=== PATIENT | female | born 1990 | race Caucasian/White ===

== ENCOUNTER 2018-10-29 17:13 | Emergency (ER) | payer OTHER ==
--- NOTE | 2018-10-29 17:32 | EDPHY ---
HPI/HX/ROS/PE/MDM Narrative: CHIEF COMPLAINT: RLQ pain HPI: The patient is a 28 y/o female complaining of dull aching RLQ abdominal pain for the last week. She was recently in [place] and was evaluated while there for possible appendicitis. A CT scan on 10/26/18, 3 days ago, did not show signs of appendicitis. They checked a urine as well, but no other lab work. She returned home yesterday and has continued to have waxing and waning pain at that site and associated reduced appetite. She also mentions mild right-sided back pressure, mild RUQ discomfort, and polyuria. She denies dysuria or hematuria. She was told she had a "low-grade fever" at [facility] today and was then referred to the ED. She is typically healthy. She has an IUD and does not have a regular menstrual period. She had some mild vaginal spotting on , 4 days ago. REVIEW OF SYSTEMS: A comprehensive 10 system review of systems is otherwise negative aside from elements mentioned in the history of present illness. 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 PHYSICAL EXAM: General:Patient is alert, in no acute distress. ENT:Eyes are normal to inspection. ENT inspection normal. Neck: Normal inspection. Full range of motion. Respiratory:No respiratory distress. Breath sounds normal bilaterally. Cardiovascular: Regular rate and rhythm. Strong peripheral pulses. Normal cap refill. Abdomen:The abdomen has mild RLQ and RUQ tenderness to palpation. There are no peritoneal signs. Back: Normal to inspection. No tenderness to palpation. Skin: Normal color. No rash. Warm and dry. Extremities: Normal appearance. Full range of motion. Neuro: Oriented x3. Normal motor function. Normal sensory function. ED Course: This is a healthy 28 y/o female who presents with a 1-week history of persistent RLQ abdominal pain with associated back pain and polyuria. Recent out -of-state CT was negative. She has RLQ and RUQ tenderness on exam. She is afebrile here. Feel appendicitis is less likely due to negative CT 5 days after symptoms began and no signs of systemic illness during assessment today. Ovarian or urinary etiology more likely. Plan for UA, labs, and abdominal US. Patient declines pain medication at this time. US shows mildly dilated appendix with some free fluid but no hyperemia. I consulted Dr. Nunez from [facility] at 1950 - he will come evaluate the patient. Dr. Nunez recommended abdominal CT. Patient declined this and would like to be discharged home. Dr. Nunez is okay with this plan and would like patient to follow up with his office as an outpatient in the next few days. Patient agrees to this. Return precautions discussed. - Data Points Imaging Results: Imaging Impressions Abdomen Ultrasound 10/29/18 18:20 Impression: Appendix upper normal in caliber, with trace periappendiceal fluid , without hyperemia or definite adjacent inflammation, indeterminate for acute appendicitis. Findings discussed with Benja Crawford MD on October 29, 2018 at 1944. Abdomen Ultrasound 10/29/18 18:20 Impression: Normal right upper quadrant ultrasound. Findings discussed with Benja Crawford MD 10/29/2018 at 1944. Pelvic/Renal Ultrasound 10/29/18 18:20 Impression: 1. Normal pelvic ultrasound. 2. IUD in good position. Findings discussed with Benja Crawford MD 10/29/2018 at 1944. Imaging: Discussed imaging studies w/ bingo caller Radiologist Laboratory Results: Laboratory Results 10/29/18 17:50 10/29/18 17:50 10/29/18 10/29/18 10/29/18 17:52 17:50 17:50 WBC RBC Hgb Hct MCV MCH MCHC RDW Plt Count MPV Neut % (Auto) Lymph % (Auto) Renville % (Auto) Eos % (Auto) Baso % (Auto) Nucleat RBC Rel Count Absolute Neuts (auto) Absolute Lymphs (auto) Absolute Monos (auto) Absolute Eos (auto) Absolute Basos (auto) Absolute Nucleated RBC Immature Gran % Immature Gran # Sodium 139 mEq/L mEq/L (135-145) Potassium 3.8 mEq/L mEq/L (3.5-5.2) Chloride 103 mEq/L mEq/L (97-110) Carbon Dioxide 25 mEq/l mEq/l (22-31) Anion Gap 11 mEq/L mEq/L (6-14) BUN 11 mg/dL mg/dL (7-23) Creatinine 0.7 mg/dL mg/dL (0.6-1.0) Estimated GFR > 60 Glucose 77 mg/dL mg/dL (70-100) Calcium 9.7 mg/dL mg/dL (8.5-10.4) Total Bilirubin 0.7 mg/dL mg/dL (0.1-1.4) Conjugated Bilirubin 0.3 mg/dL mg/dL (0.0-0.5) Unconjugated Bilirubin 0.4 mg/dL mg/dL (0.0-1.1) AST 26 IU/L IU/L (14-46) ALT 22 IU/L IU/L (9-52) Alkaline Phosphatase 77 IU/L IU/L (38-126) Total Protein 8.0 g/dL g/dL (6.3-8.2) Albumin 5.0 g/dL g/dL (3.5-5.0) Lipase 96 IU/L IU/L (23-300) Beta HCG, Qual NEGATIVE Urine Color YELLOW Urine Appearance CLEAR Urine pH 7.0 (5.0-7.5) Ur Specific Adams 1.012 (1.002-1.030) Urine Protein NEGATIVE (NEGATIVE) Urine Ketones 1+ H (NEGATIVE) Urine Blood NEGATIVE (NEGATIVE) Urine Nitrate NEGATIVE (NEGATIVE) Urine Bilirubin NEGATIVE (NEGATIVE) Urine Urobilinogen NEGATIVE EU EU (0.2-1.0) Ur Leukocyte Esterase NEGATIVE (NEGATIVE) Urine Glucose NEGATIVE (NEGATIVE) 10/29/18 17:50 WBC 10.21 10^3/uL H 10^3/uL (3.80-9.50) RBC 5.31 10^6/uL 10^6/uL (4.18-5.33) Hgb 15.4 g/dL g/dL (12.6-16.3) Hct 45.2 % % (38.0-47.0) MCV 85.1 fL fL (81.5-99.8) MCH 29.0 pg pg (27.9-34.1) MCHC 34.1 g/dL g/dL (32.4-36.7) RDW 12.4 % % (11.5-15.2) Plt Count 275 10^3/uL 10^3/uL (150-400) MPV 8.8 fL fL (8.7-11.7) Neut % (Auto) 55.0 % % (39.3-74.2) Lymph % (Auto) 36.8 % % (15.0-45.0) Renville % (Auto) 6.8 % % (4.5-13.0) Eos % (Auto) 0.7 % % (0.6-7.6) Baso % (Auto) 0.4 % % (0.3-1.7) Nucleat RBC Rel Count 0.0 % % (0.0-0.2) Absolute Neuts (auto) 5.62 10^3/uL 10^3/uL (1.70-6.50) Absolute Lymphs (auto) 3.76 10^3/uL H 10^3/uL (1.00-3.00) Absolute Monos (auto) 0.69 10^3/uL 10^3/uL (0.30-0.80) Absolute Eos (auto) 0.07 10^3/uL 10^3/uL (0.03-0.40) Absolute Basos (auto) 0.04 10^3/uL 10^3/uL (0.02-0.10) Absolute Nucleated RBC 0.00 10^3/uL 10^3/uL (0-0.01) Immature Gran % 0.3 % % (0.0-1.1) Immature Gran # 0.03 10^3/uL 10^3/uL (0.00-0.10) Sodium Potassium Chloride Carbon Dioxide Anion Gap BUN Creatinine Estimated GFR Glucose Calcium Total Bilirubin Conjugated Bilirubin Unconjugated Bilirubin AST ALT Alkaline Phosphatase Total Protein Albumin Lipase Beta HCG, Qual Urine Color Urine Appearance Urine pH Ur Specific Adams Urine Protein Urine Ketones Urine Blood Urine Nitrate Urine Bilirubin Urine Urobilinogen Ur Leukocyte Esterase Urine Glucose Medications Given: Discontinued Medications Ketorolac Tromethamine (Toradol) 30 mg IVP EDNOW ONE Stop: 10/29/18 20:50 Last Admin: 10/29/18 20:59 Dose: 30 mg General Time Seen by Provider: 10/29/18 17:22 Initial Vital Signs: Initial Vital Signs Temperature (C) 36.6 C 10/29/18 17:15 Heart Rate 75 10/29/18 17:15 Respiratory Rate 17 10/29/18 17:15 Blood Pressure 137/100 H 10/29/18 17:15 O2 Sat (%) 97 10/29/18 17:15 O2 Delivery Mode Room Air Allergies/Adverse Reactions: No Known Allergies Allergy (Unverified 10/29/18 17:15) Home Medications: Medication Instructions Recorded MIRENA 10/29/18 Departure - Departure Disposition: Home, Routine, Self-Care Clinical Impression: Abdominal pain Qualifiers: Abdominal location: right lower quadrant Qualified Code(s): R10.31 - Right lower quadrant pain Condition: Good Instructions: Acute Abdominal Pain (ED) Additional Instructions: 1. Follow up with Dr. Nunez this week as directed. 2. Return to the ED for any worsening of condition. Referrals: Jesús Nunez MD [Medical Doctor] - As per Instructions Report Scribed for: Benja Crawford Report Scribed by: Glenis Chavez Date of Report: 10/29/18 Time of Report: 17:25 Physician Review and Approval Statement: Portions of this note were transcribed by an ED scribe. I personally performed the history, physical exam, and medical decision making; and confirm the accuracy of the information in the transcribed note.
[2018-10-29 18:10] LABS: PLATELET COUNT 275 10^3/uL (150-400)
[2018-10-29] MEDS ORDERED: KETOROLAC 30 MG/1 ML SDV IVP ONE (20:49)
[2018-10-29 21:38] VITALS: BP 117/72
--- NOTE | 2018-10-30 10:20 | GCON ---
[f rep st] CONSULTATION DATE OF CONSULTATION: 10/29/2018 REASON FOR EVALUATION: Right lower quadrant pain. Rule out appendicitis. 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 She reports the symptoms started approx imately last Monday while at home visiting her family in [place]. She had persistent discomfort over e ensuing week for which she presented to a physician three days ago. CT imaging was performed showi ng normal appendix and normal test. No other workup was entertained. Patient returned prosper Last 2 Left to [place] and, because of persistent abdominal pressure and anorexia, sought workup at [facility]. She was sent to the emergency room for further assessment. Lab workup here disclosed a white count of 10.5. A right lower quadrant ultrasonography was performed showing an indeterminate ultrasound f or appendicitis. Surgery has been requested for further workup and recommendations. No prior histor y of antecedent complaints. No history of diarrhea. No other sick contacts. No fevers or chills. No voiding complaints. PAST MEDICAL HISTORY: Denies. PAST SURGICAL HISTORY: None. MEDICATIONS: None. She has an IUD. ALLERGIES: No known drug allergies. SOCIAL HISTORY: No alcohol or tobacco. FAMILY HISTORY: Noncontributory. REVIEW OF SYSTEMS: Notable for above GI complaints only. PHYSICAL EXAMINATION: VITAL SIGNS: Temperature 36.7, blood pressure 116/80, pulse 73, respirations 16. GENERAL: Patient is alert, appropriate, comfortable to my exam. HEENT: Anicteric. No cervica l lymphadenopathy. HEART: Regular. LUNGS: Clear. ABDOMEN: Soft. Mild diffuse right lower quadr ant tenderness without rebound or guarding. Notable Rovsing sign as well as obturator sign. EXTREMI TIES: Unremarkable. SKIN: Without rashes. White count 10.2, lymphocyte predominance. No neutrophils. Electrolytes within reference range. Li alverto enzymes were within reference range. test negative. Urinalysis unremarkable. Outside CT images were directly reviewed on her provided disk. Normal-appearing appendix is well displayed, coursing deep into her pelvis and tracking superiorly. Pelvic ultrasound images were reviewed with the on-call radiologist from [facility] this evening. The majority the appendix is wel l visualized measuring 6.5 mm at best with no significant inflammatory changes or periappendiceal daniel e fluid or hyperemia. IMPRESSION: Right lower quadrant pain. Query mesenteric adenitis versus less likely appendicitis. We discussed the options of repeat pelvic imaging versus serial abdominal exams versus diagnostic lap aroscopy. After extensive discussion, the patient would like to continue with serial abdominal exams with outpatient followup warning signs for appendicitis were reviewed should she develop worsening p ain were discussed. /[id number]/MODL
== END 2018-10-29 21:37 | disposition home or self-care (01) ==
DX: R10.31 Right lower quadrant pain (principal)
CPT/HCPCS: 96374; J1885

== ENCOUNTER 2018-11-02 15:27 | Observation (INO) | payer OTHER ==
[2018-11-02] MEDS ORDERED: PROPOFOL/EMULSION 500 MG/50 ML BOTTLE IV ONE (15:39)
[2018-11-02] MEDS ORDERED: BUPIVACAINE/EPI 0.5% 30 ML SDV ONE (15:40)
[2018-11-02] MEDS ORDERED: fentaNYL 250 MCG/5 ML INJ ONE (15:40)
[2018-11-02] MEDS ORDERED: KETOROLAC 30 MG/1 ML SDV IVP ONE (15:50)
[2018-11-02] MEDS ORDERED: cefOXitin SODIUM 2 GM in NS 100 ML IV ONE (16:00)
[2018-11-02] MEDS ORDERED: LR 1,000 ML IV ONE (16:07)
[2018-11-02] MEDS ORDERED: MIDAZOLAM 2 MG/2 ML VIAL IVP ONE (16:09)
--- NOTE | 2018-11-02 16:11 | PDANEPAE ---
ANE History of Present Illness 28 year old female for [employer]. Otherwise healthy. ANE Past Medical History - Cardiovascular History Hx Hypertension: No Hx Arrhythmias: No Hx Chest Pain: No Hx Coronary Artery / Peripheral Vascular Disease: No Hx CHF / Valvular Disease: No Hx Palpitations: No - Pulmonary History Hx COPD: No Hx Asthma/Reactive Airway Disease: No Hx Recent Upper Respiratory Infection: No Hx Oxygen in Use at Home: No Hx Sleep Apnea: No - Endocrine History Hx Diabetes: No ANE Review of Systems Review of systems is: negative Review of Systems: ANE Patient History - Allergies Allergies/Adverse Reactions: No Known Allergies Allergy (Unverified 10/29/18 17:15) - Home Medications Home Medications: MIRENA 10/29/18 [Last Taken Unknown] - NPO status NPO Since - Liquids (Date): 11/02/18 NPO Since - Liquids (Time): 15:40 NPO Since - Solids (Date): 11/02/18 NPO Since - Solids (Time): 12:00 - Smoking Hx Smoking Status: Never smoked ANE Labs/Vital Signs - Vital Signs Blood Pressure: 113/84 Heart Rate: 77 Respiratory Rate: 17 O2 Sat (%): 98 ANE Physical Exam - Airway Neck exam: FROM Mallampati Score: Class 2 Mouth exam: normal dental/mouth exam - Pulmonary Pulmonary: no respiratory distress - Cardiovascular Cardiovascular: regular rate and rhythym - ASA Status ASA Status: I, E ANE Anesthesia Plan Anesthesia Plan: general endotracheal anesthesia
[2018-11-02] MEDS ORDERED: LR 500 ML IV PRN (16:52)
[2018-11-02] MEDS ORDERED: PROMETHAZINE HCL 25 MG/ML INJ IVP PRN (16:52)
[2018-11-02] MEDS ORDERED: oxyCODONE IR 5 MG TAB PO PRN (16:52)
[2018-11-02] MEDS ORDERED: NALOXONE HCL 0.4 MG/ML INJ IVP PRN (16:52)
[2018-11-02] MEDS ORDERED: ALBUTEROL 3 ML DEYVIAL IH PRN (16:52)
[2018-11-02] MEDS ORDERED: ONDANSETRON 4 MG/2 ML VIAL IVP PRN (16:52)
[2018-11-02] MEDS ORDERED: DEXAMETHASONE 4 MG/ML VIAL IVP PRN (16:52)
[2018-11-02] MEDS ORDERED: LABETALOL HCL 5 MG/ML 20 ML MDV IVP PRN (16:52)
[2018-11-02] MEDS ORDERED: HYDROCODONE/APAP 5/325 TAB PO PRN (16:58)
[2018-11-02] MEDS ORDERED: ACETAMINOPHEN 325 MG TAB PO PRN (16:58)
[2018-11-02] MEDS ORDERED: ZOLPIDEM TARTRATE 5 MG TAB PO PRN (16:58)
[2018-11-02] MEDS ORDERED: HYDROmorphONE/DILAUDID 1 MG/ML INJ IVP PRN (16:58)
--- NOTE | 2018-11-02 16:58 | POSTOPPROG ---
Post Op Note Date of Operation: 11/02/18 Surgeon: Jesús Nunez Fabric Worker Foreman: Kristal Jay Anesthesiologist: Alanis Urrutia Anesthesia: GET(General Endotracheal) Pre-op Diagnosis: RLQ pain Post-op Diagnosis: Same Procedure: Dx lap with appy Findings: injected appendix Inf/Abcess present in the surg proc area at time of surgery?: Yes Depth: Organ Space EBL: Minimal Specimen(s): appendix
[2018-11-02] MEDS ORDERED: LR 1,000 ML IV SCH (17:00)
--- NOTE | 2018-11-02 17:13 | POSTANESTH ---
Post Anesthetic Evaluation Cardiovascular Status: Normal, Stable Respiratory Status: Normal, Stable Level of Consciousness/Mental Status: Mildly Sleepy, Arousable Pain Control: Adequate, Prn Tx Ordered Nausea/Vomiting Control: Adequate, Prn Tx Ordered Complications Possibly Related to Anesthesia: None Noted
[2018-11-02] MEDS ORDERED: fentaNYL 100 MCG/2 ML INJ ONE (17:35)
[2018-11-02] MEDS: fentaNYL 100 MCG/2 ML INJ IVP PRN ×2 (17:39→18:10)
[2018-11-02] MEDS ORDERED: KETOROLAC 15 MG/1 ML SDV IVP SCH (18:00)
--- NOTE | 2018-11-02 19:27 | GOP ---
[f rep st] OPERATIVE REPORT DATE OF OPERATION: 11/02/2018 SURGEON: Jesús Nunez MD DISTRICT COMMERCIAL SUPERINTENDENT: Kristal Jay PA-C. ANESTHESIA: General. ANESTHESIOLOGIST: Alanis Ansari MD. PREOPERATIVE DIAGNOSIS: Right lower quadrant pain. POSTOPERATIVE DIAGNOSIS: Right lower quadrant pain. PROCEDURE PERFORMED: Diagnostic laparoscopy with appendectomy. FINDINGS: INDICATIONS: A 28-year-old healthy female with approximately a week and a half history of progressiv lilli worsening right lower quadrant pain. She has had multiple workups, disclosing indeterminate find ings for acute appendicitis with a persistent leukocytosis. Her symptoms have continued to progressi vely worsen for which she is undergoing a diagnostic laparoscopy at this time. Risks and benefits we re explained of bleeding, infection, and open conversion, as well as alternative diagnoses. All ques tions were answered. She desires to proceed. DESCRIPTION OF PROCEDURE: After general anesthesia was induced, the abdomen was pre-injected with 0. 5% Marcaine with epinephrine. A curvilinear infraumbilical incision was created. The midline fascia was opened vertically. A 10 mm trocar was placed under direct visualization. Two additional 5 mm l ower midline ports were inserted. The appendix was notably injected without evidence of separation o r perforation. The mesoappendix was divided with a Harmonic scalpel. The base was transected flush with the cecum and brought through the umbilical port site intact using an EndoCatch pouch. Bilatera l cystic ovaries were noted without evidence of hemorrhage. The uterus appeared normal. No bloody p elvic fluid was noted. No evidence of endometriosis was noted. The small bowel was run from the ile ocecal valve to the ligament of Treitz. No Meckel diverticula or other bowel abnormalities were seen . The gallbladder appeared normal. Visceral surfaces all appeared normal. Satisfactory hemostasis was assured. Trocars were removed under direct visualization. The infraumbilical midline fascia was closed with running Vicryl suture. The wounds were closed with Monocryl assisted by Dermabond. The patient was taken to Recovery uneventfully. /[id number]/MODL
[2018-11-02] MEDS: KETOROLAC 15 MG/1 ML SDV IVP SCH (22:42)
[2018-11-03] MEDS: oxyCODONE IR 5 MG TAB PO PRN ×2 (02:02→08:17)
[2018-11-03] MEDS: KETOROLAC 15 MG/1 ML SDV IVP SCH ×2 (04:28→11:10)
[2018-11-03] MEDS: ONDANSETRON 4 MG/2 ML VIAL IVP PRN ×2 (08:28→11:09)
[2018-11-03 11:59] VITALS: BP 91/56
== END 2018-11-03 15:02 | disposition home or self-care (01) ==
LOC: FSGY 15:27 → F3E 16:58 → FOB 18:36
PROVIDERS: ADMIT Surgery; ATTEND Surgery
PROC: 0DTJ4ZZ Resection of Appendix, Percutaneous Endoscopic Approach (ICD-10-PCS; principal; 2018-11-02 15:45)
DX: R10.31 Right lower quadrant pain (principal); D72.829 Elevated white blood cell count, unspecified
CPT/HCPCS: 44970; 93971; G0378; J0694; J1885; J2250; J2405; J2704; J3010